=== PATIENT | female | born 1990 | race Caucasian/White ===

== ENCOUNTER 2022-06-14 08:56 | Inpatient (IN) | payer MEDICAID, MEDICARE ==
[~2022-06-14] VITALS: Ht 160 cm; Wt 74.4 kg
[~2022-06-14 08:56] MED LIST: MISOPROSTOL 200MCG TABLET ONE
[2022-06-14] MEDS ORDERED: BUTORPHANOL TARTRATE 2 MG/ML VIAL IV PRN (10:45)
[2022-06-14] MEDS ORDERED: NALOXONE HCL 0.4 MG/ML 1ML VIAL IM PRN (10:45)
[2022-06-14] MEDS ORDERED: METHYLERGONOVINE MALEATE 0.2 MG/ML IM PRN (10:45)
[2022-06-14] MEDS ORDERED: LIDOCAINE HCL 1% 20ML VIAL (Pyxis) INJ INFIL SCH (10:45)
[2022-06-14 10:59] LABS: BASOPHILS % 0.6 % (0.0-2.0); EOSINOPHILS % 0.4 % (0.0-5.0); HEMATOCRIT. 34.7 % (36.0-48.0); HEMOGLOBIN. 11.5 g/dL (12.0-16.0); MEAN CORPUSCULAR HEMOGLOBIN 28.2 pg (28.0-32.0); MEAN CORPUSCULAR VOLUME 84.8 fL (81.0-99.0); MEAN PLATELET VOLUME 9.4 fl (7.4-10.4); MONOCYTES % 5.9 % (2.0-8.0); NEUTROPHILS % 70.1 % (40.0-76.0); PLATELET 254 x1000/uL (130-400); RED BLOOD CELL COUNT 4.09 mill/uL (4.2-5.4); RED CELL DISTRIBUTION WIDTH 14.2 % (11.6-14.6)
[2022-06-14] MEDS ORDERED: ROPIVACAINE HCL/PF EPIDURAL 200 ML EP SCH (11:00)
[2022-06-14 11:03] LABS: CLARITY URINE CLEAR (CLEAR); COLOR URINE YELLOW (YELLOW); KETONES URINE 2+ (NEGATIVE); LEUKOCYTE ESTERASE URINE TRACE (NEGATIVE); NITRITE URINE NEGATIVE (NEGATIVE); OCCULT BLOOD URINE NEGATIVE (NEGATIVE); PH URINE 6.5 (4.5-8.0); PROTEIN URINE TRACE (NEGATIVE); SPECIFIC GRAVITY URINE 1.024 (1.005-1.030)
[2022-06-14 11:11] LABS: INR 0.9; PARTIAL THROMBOPLASTIN TIME 24.6 sec (23.4-31.0); PROTHROMBIN TIME 9.7 sec (9.6-11.0)
[2022-06-14] MEDS ORDERED: ROPIVACAINE HCL/PF EPIDURAL 200 ML EPI SCH (11:15)
[2022-06-14] MEDS: LACTATED RINGERS 1,000 ML IV SCH ×4 (11:24→20:14)
[2022-06-14 11:33] LABS: CANNABINOID URINE SCREEN NEGATIVE (NEGATIVE)
[2022-06-14] MEDS: OXYTOCIN 30 UNITS/500ML NS PMX 500 ML IV SCH ×2 (12:09→17:06)
[2022-06-14 12:51] LABS: *AMPHETAMINES SCREEN URINE NEGATIVE (NEGATIVE); *BARBITURATES SCREEN URINE NEGATIVE (NEGATIVE); *BENZODIAZEPINES SCREEN URINE NEGATIVE (NEGATIVE); *COCAINE SCREEN URINE NEGATIVE (NEGATIVE); METHADONE URINE SCREEN NEGATIVE (NEGATIVE); OPIATES URINE SCREEN NEGATIVE (NEGATIVE); PHENCYCLIDINE URINE SCREEN NEGATIVE (NEGATIVE)
[2022-06-14 12:59] LABS: HEPATITIS B SURFACE ANTIGEN NEGATIVE
[2022-06-14] MEDS ORDERED: HEMORRHOIDAL SUPP PR PRN (17:00)
[2022-06-14] MEDS ORDERED: GLYCERIN/WITCH HAZEL LEAF MEDICATED PAD TOP PRN (17:00)
[2022-06-14] MEDS ORDERED: MAGNESIUM/ALUMINUM HYDROXIDE/SIMETHICONE 30ML UDC PO SCH (17:00)
[2022-06-14] MEDS ORDERED: RHO(D) IMMUNE GLOBULIN 300 MCG/SYR IM PRN (17:00)
[2022-06-14] MEDS ORDERED: DIPHENHYDRAMINE 25MG CAPSULE PO PRN (17:00)
[2022-06-14] MEDS ORDERED: OXYTOCIN 30 UNITS/500ML NS PMX 500 ML IV SCH (17:00)
[2022-06-14] MEDS ORDERED: ACETAMINOPHEN WITH CODEINE 300/30MG TABLET PO PRN (17:00)
[2022-06-14] MEDS ORDERED: BISACODYL 10MG SUPP PR PRN (17:00)
[2022-06-14] MEDS ORDERED: LANOLIN OINT 7GM TUBE TOP PRN (17:00)
[2022-06-14] MEDS ORDERED: IBUPROFEN 400MG TABLET PO PRN (17:00)
[2022-06-14] MEDS ORDERED: IBUPROFEN 800MG TABLET PO PRN (17:00)
[2022-06-14] MEDS ORDERED: METHYLERGONOVINE MALEATE 0.2MG TABLET PO SCH (17:00)
[2022-06-14] MEDS ORDERED: SIMETHICONE 80MG TABLET CHEW PO SCH (17:00)
[2022-06-14] MEDS ORDERED: BENZOCAINE/LANOLIN/ALOE VERA SPRAY TOP PRN (17:00)
[2022-06-14] MEDS ORDERED: IBUPROFEN 100MG/5ML UDC PO PRN (19:30)
[2022-06-14] MEDS: IBUPROFEN 100MG/5ML UDC PO PRN (20:05)
[2022-06-14 20:30] VITALS: BP 109/71
[2022-06-14] MEDS ORDERED: DOCUSATE SODIUM SUGAR FREE 100MG/10ML UDC PO SCH (21:00)
[2022-06-15 04:00] VITALS: BP 98/64
[2022-06-15] MEDS ORDERED: FERROUS SULFATE 325MG TABLET PO SCH (07:30)
[2022-06-15 07:40] VITALS: BP 92/58
[2022-06-15 08:05] LABS: BASOPHILS % 0.2 % (0.0-2.0); EOSINOPHILS % 0.2 % (0.0-5.0); HEMATOCRIT. 28.8 % (36.0-48.0); HEMOGLOBIN. 9.5 g/dL (12.0-16.0); LYMPHOCYTES % 26.7 % (20.0-50.0); MEAN CORPUSCULAR HEMOGLOBIN 28.1 pg (28.0-32.0); MEAN CORPUSCULAR VOLUME 84.9 fL (81.0-99.0); MEAN PLATELET VOLUME 9.6 fl (7.4-10.4); MONOCYTES % 6.1 % (2.0-8.0); NEUTROPHILS % 66.8 % (40.0-76.0); PLATELET 198 x1000/uL (130-400); RED BLOOD CELL COUNT 3.39 mill/uL (4.2-5.4); RED CELL DISTRIBUTION WIDTH 14.5 % (11.6-14.6)
[2022-06-15] MEDS: IBUPROFEN 100MG/5ML UDC PO PRN (08:46)
[2022-06-15] MEDS ORDERED: PRENATAL VIT/FE FUMARATE/FA TABLET PO SCH (09:00)
[2022-06-15 16:00] VITALS: BP 102/70
[2022-06-18 06:10] LABS: HIV SCREEN 4G Non Reactive (Non Reactive)
== END 2022-06-15 18:37 | disposition home or self-care (01) | DRG 560 ==
LOC: 8 EST LDRP 08:56 → OBSVTOIN 10:30 → 8EST 20:40
PROVIDERS: ADMIT Obstetrics & Gynecology; ATTEND Obstetrics & Gynecology
PROC: 10E0XZZ Delivery of Products of Conception, External Approach (ICD-10-PCS; principal; 2022-06-14)
DX: O80 Encounter for full-term uncomplicated delivery (principal); Z37.0 Single live birth; Z20.822 Contact with and (suspected) exposure to COVID-19; Z3A.38 38 weeks gestation of pregnancy
CPT/HCPCS: 36415; 76805; 76818; 80305; 81003; 85025; 86592; 86762; 86850; 86900; 87340; 87389; 87426; 99281; G0378; J2795; J7120; A4315; J2590